=== PATIENT | female | born 1945 | race Two or more races ===

== ENCOUNTER 2021-11-11 03:37 | Emergency (ER) | payer OTHER, MEDICAID ==
[~2021-11-11] VITALS: Ht 162.6 cm; Wt 63.5 kg
[~2021-11-11 03:37] MED LIST: OMEP20TA85 PO; PREG75CA PO; SIMVPOW2 XX; TRAM50TA2 PO; TRAZ100T3 PO
[2021-11-11 03:40] VITALS: BP 142/87
[2021-11-11] MEDS ORDERED: LORazepam 2MG/ML-1ML VIAL IM ONE (05:30)
== END 2021-11-11 11:17 | disposition left against medical advice (07) ==
LOC: EDBD 03:37 → ER 03:40
DX: R41.82 Altered mental status, unspecified (principal); F41.9 Anxiety disorder, unspecified; F31.9 Bipolar disorder, unspecified; F20.9 Schizophrenia, unspecified
CPT/HCPCS: 96372; 99283; J2060

== ENCOUNTER 2025-01-17 19:40 | Emergency (ER) | payer OTHER, MEDICAID ==
[~2025-01-17] VITALS: Ht 154.9 cm; Wt 68.0 kg
[~2025-01-17 19:40] MED LIST changes: +TRAZ-228 PO; -TRAZ100T3 PO
[2025-01-17] MEDS: LORazepam 0.5 MG TAB PO ONE (20:00)
[2025-01-17 20:01] VITALS: BP 143/78; PULSE 100; RESP 25; TEMP 98.3; O2SAT 100
--- NOTE | 2025-01-17 20:10 | ED.PDOC ---
History of Present Illness HPI Comments 79 y/o F, with a history of anxiety, asthma, bipolar disorder, and liver cancer, is BIBA for c/o anxiety attack, today. Per EMS report, patient endorses on sudden onset of an anxiety attack episode, while shopping at [employer], earlier, this evening. She reports experiencing several stressors, lately, which included being unable to obtain a refill of her prescription medications, recent homelessness after being evicted by her biological daughter she was living with, and issues contacting other family members. Patient's vitals were reported to have been stable and within normal limits. She has no reported chest pain, shortness of breath, suicidal or homicidal ideations, auditory or visual hallucinations, or other associated symptoms at this time. Chief Complaint: Anxiety Time Seen by MD: 19:45 Primary Care Provider: LAWRENCE Rodriguez Notes: Nurses Notes, Barrel Roller Notes, Medications, Allergies Allergies: Coded Allergies: NO KNOWN ALLERGIES (Unverified , 12/06/12) Home Meds Reported Medications Omeprazole (HM OMEPRAZOLE) 20 Mg Tab, 20 MG PO DAILY 12/07/12 Simvastatin (Simvastatin) Pow, 1 XX 12/07/12 Pregabalin (Lyrica) 75 Mg Cap, 75 MG PO BID 12/07/12 Tramadol Hcl (Tramadol Hcl) 50 Mg Tab, 50 MG PO BID 12/07/12 Trazodone Hcl (Trazodone Hcl) 100 Mg Tab, 100 MG PO DAILY 12/07/12 Information Source: Patient, Emergency Med Personnel Mode of Arrival: EMS Severity: Moderate Timing: Hours Duration: Since onset Prehospital treatment: 12 Lead EKG, Director Of It Operations Past Medical History PAST MEDICAL HISTORY: Angina, High Lipids, HTN Past Medical History (Other): bipolar disorder, overweight Surgical History: Denies all surgeries SUB MASTER History: No Pertinent SUB MASTER History Family History Family History: Reviewed,noncontributory to illness Social History Smoker: Non-Smoker Alcohol: Denies ETOH Use Drugs: Denies Drug Use Lives In: Home All Other Systems: Reviewed and Negative (Comprehensive systems review obtained and negative except for what is stated in the HPI.) Physical Exam General Appearance: Other (anxious appearing, overweight ) HEENT: Normal ENT Inspection, Pharynx Normal, TMs Normal Neck: Full Range of Motion, Non-Tender, Normal, Normal Inspection Respiratory: Chest Non-Tender, Lungs Clear, No Accessory Muscle Use, No Respiratory Distress, Normal Breath Sounds Cardiovascular: No Edema, No JVD, No Murmur, No Gallop, Normal Peripheral Pulses, Regular Rate/Rhythm Breast Exam: Deferred Gastrointestinal: No Organomegaly, Non Tender, No Pulsatile Mass, Normal Bowel Sounds, Soft Genitalia: Deferred Pelvic: Deferred Rectal: Deferred Extremities: No calf tenderness, Normal capillary refill, Normal inspection, Normal range of motion, Non-tender, No pedal edema Musculoskeletal : Apperance: Normal Neurologic: Alert, engineering technician parking II-XII nml as Tested, No Motor Deficits, Normal Affect, Normal Mood, No Sensory Deficits Cerebellar Function: Normal Reflexes: Normal Skin: Dry, Normal Color, Warm Lymphatic: No Adenopathy Was a procedure done? Was a procedure done?: No Differential Dx Considerations may include: anxiety, panic attack, hopelessness, depression X-Ray, Labs, Meds, VS Vital Signs Date Time Temp Pulse Resp B/P (MAP) Pulse Ox O2 Delivery O2 Flow Rate FiO2 01/17/25 20:01 98.3 100 25 143/78 (99) 100 98.3 Lab Test 01/17/25 21:35 01/17/25 20:08 Range/Units Urine Color Colorless Yellow Urine Clarity Clear Clear Urine pH 6.5 5.0-9.0 Urine Specific [place] 1.002 1.001-1.035 Urine Protein Negative Negative Urine Ketones Negative Negative Urine Blood Negative Negative /uL Urine Nitrite Negative Negative Urine Bilirubin Negative Negative Urine Urobilinogen Normal Negative mg/dL Urine Leukocyte Esterase Negative Negative /uL Urine RBC <1 0 - 4 /hpf Urine Microscopic WBC < 1 0-5 /HPF Urine Squamous Epithelial Cells None seen <5 /hpf Urine Bacteria None seen None Seen /hpf Urine Glucose Normal Normal mg/dL Urine Opiates Screen Neg NEGATIVE Urine Fentanyl Screen Neg NEGATIVE Urine Barbiturates Screen Neg NEGATIVE Urine Phencyclidine Screen Neg NEGATIVE Urine Amphetamines Screen Neg NEGATIVE Urine Benzodiazepines Screen Neg NEGATIVE Urine Cocaine Screen Neg NEGATIVE Urine Cannabinoids Screen Neg NEGATIVE White Blood Count 7.7 4.4-10.8 10^3/uL Red Blood Count 4.73 4.0-5.20 10^6/uL Hemoglobin 13.4 12.2-16.2 g/dL Hematocrit 40.9 36.0-46.0 % Mean Corpuscular Volume 86.5 80.0-100.0 fL Mean Corpuscular Hemoglobin 28.3 28.0-32.0 pg Mean Corpuscular Hemoglobin Concent 32.7 32.0-36.0 g/dL Red Cell Distribution Width 15.4 H 11.8-14.3 % Platelet Count 247 140-450 10^3/uL Mean Platelet Volume 9.1 6.9-10.8 fL Neutrophils (%) (Auto) 63.4 37.0-80.0 % Lymphocytes (%) (Auto) 25.9 10.0-50.0 % Monocytes (%) (Auto) 6.9 0.0-12.0 % Eosinophils (%) (Auto) 2.9 0.0-7.0 % Basophils (%) (Auto) 0.9 0.0-2.0 % Neutrophils # (Auto) 4.9 1.6-8.6 10 ^3/uL Lymphocytes # (Auto) 2.0 0.4-5.4 10 ^3/uL Monocytes # (Auto) 0.5 0-1.3 10 ^3/uL Eosinophils # (Auto) 0.2 0-0.8 10 ^3/uL Basophils # (Auto) 0.1 0-0.2 10 ^3/uL Nucleated Red Blood Cells 0.0 % Sodium Level 139 136-145 mmol/L Potassium Level 3.9 3.5-5.1 mmol/L Chloride Level 103 98-107 mmol/L Carbon Dioxide Level 26 20-31 mmol/L Anion Gap 10 5-15 Blood Urea Nitrogen 13 9-23 mg/dL Creatinine 0.90 0.550-1.02 mg/dL Glomerular Filtration Rate Calc 65 >90 mL/min BUN/Creatinine Ratio 14.4 10.0-20.0 Serum Glucose 125 H 74-106 mg/dL Calcium Level 10.4 8.7-10.4 mg/dL Salicylates Level < 3.0 -30 mg/dL Acetaminophen Level < 2.0 L 10.0-20.0 UG/ML Plasma/Serum Blood Alcohol 5.5 <10 mg/dL Current Medications Medications (Trade) Dose Ordered Sig/Valentin Route Start Time Stop Time Status Last Admin Lorazepam (Ativan Tablet) 2 mg ONCE ONCE PO 01/17/25 20:00 01/17/25 20:01 DC 01/17/25 20:00 Time of 1ST Reevaluation: 20:15 Reevaluation 1ST: Unchanged Patient Education/Counseling: Diagnosis, Treatment Family Education/Counseling: No Family Present Additional Information Previous visit documents reviewed: November 11, 2021 and December 06, 2012 encounter for behavioral and chest pain, respectively The following tests were ordered, and results were reviewed by me: UA, salicylate, acetaminophen, blood alcohol, drug screen, BMP Additional Information was gathered from interviewing the following independent historians: EMS I reviewed and agreed with the following test results read by other providers: n/a I discussed treatment and results with medical personnel and: Patient Departure 1 Departure Time of Disposition: 22:34 (Patient is feeling better after receiving benzodiazepine medication. We will discharge patient home with outpatient follow up) Impression: Primary Impression: Panic attack Disposition: HOME / SELF CARE / HOMELESS Condition: Stable Additional Instructions: It is important continue to take your regular medications see your regular doctors. Discharged With: Self Critical Care Note Critical Care Time?: No Stability Stability form required: No Heart Score Heart Score: Heart Score Response (Comments) Value History N/A 0 EKG N/A 0 Age N/A 0 Risk Factors N/A 0 Troponin N/A 0 Total 0 I personally scribed for GEM BRYANT MD ([email or web address]) on 01/17/25 at 20:10. Electronically submitted by Rohith Street ([email or web address]). GEM BRYANT MD Jan 17, 2025 20:10
[2025-01-17 20:19] LABS: Basophils # (auto) 0.1 10 ^3/uL (0-0.2); Basophils % (auto) 0.9 % (0.0-2.0); Eosinophils # (auto) 0.2 10 ^3/uL (0-0.8); Eosinophils % (auto) 2.9 % (0.0-7.0); Hematocrit 40.9 % (36.0-46.0); Hemoglobin 13.4 g/dL (12.2-16.2); Lymphocytes % (auto) 25.9 % (10.0-50.0); Mean Corpuscular Hemoglobin 28.3 pg (28.0-32.0); Mean Corpuscular Hgb Conc. 32.7 g/dL (32.0-36.0); Mean Corpuscular Volume 86.5 fL (80.0-100.0); Monocytes # (auto) 0.5 10 ^3/uL (0-1.3); Monocytes % (auto) 6.9 % (0.0-12.0); Neutrophils # (auto) 4.9 10 ^3/uL (1.6-8.6); Neutrophils % (auto) 63.4 % (37.0-80.0); Platelet Count (auto) 247 10^3/uL (140-450); Red Blood Cells 4.73 10^6/uL (4.0-5.20); Red Cell Distribution Width 15.4 % (11.8-14.3); White Blood Cell 7.7 10^3/uL (4.4-10.8)
[2025-01-17 20:29] LABS: Chloride 103 mmol/L (98-107); Potassium 3.9 mmol/L (3.5-5.1); Sodium 139 mmol/L (136-145)
[2025-01-17 20:30] LABS: Anion Gap 10 (5-15); Calcium 10.4 mg/dL (8.7-10.4); Carbon Dioxide 26 mmol/L (20-31)
[2025-01-17 20:35] LABS: BUN/Creatinine Ratio 14.4 (10.0-20.0); Blood Urea Nitrogen 13 mg/dL (9-23)
[2025-01-17 20:36] LABS: Blood Alcohol 5.5 mg/dL (<10)
[2025-01-17 20:40] LABS: Acetaminophen < 2.0 UG/ML (10.0-20.0); Salicylate < 3.0 mg/dL (-30)
[2025-01-17 20:42] LABS: Glucose 125 mg/dL (74-106)
[2025-01-17 21:39] LABS: Urine Bacteria None Seen /hpf (None Seen)
[2025-01-17 22:02] LABS: Urine Blood Negative /uL (Negative); Urine Clarity Clear (Clear); Urine Color Colorless (Yellow); Urine Protein, UAD Negative (Negative); Urine Specific Gravity 1.002 (1.001-1.035); Urine Squamous Epithelial Cell None Seen /hpf (<5); Urine Urobilinogen Normal (Negative); Urine WBC < 1 /HPF (0-5); Urine pH 6.5 (5.0-9.0)
[2025-01-17 22:10] LABS: Amphetamine Screen, Urine Neg (NEGATIVE); Barbiturate Scree,Urine Neg (NEGATIVE); Benzodiazephine Screen, Urine Neg (NEGATIVE); Cannabinoid Screen, Urine Neg (NEGATIVE); Cocaine Screen, Urine Neg (NEGATIVE); Opiate Scree,Urine Neg (NEGATIVE); Phencyclidine Screen, Urine Neg (NEGATIVE)
== END 2025-01-17 22:35 | disposition home or self-care (01) ==
LOC: ER 19:40 → EDBD 19:40 → ER 22:35
DX: F41.0 Panic disorder [episodic paroxysmal anxiety] (principal); I10 Essential (primary) hypertension; F31.9 Bipolar disorder, unspecified; J45.909 Unspecified asthma, uncomplicated; Z79.899 Other long term (current) drug therapy; Z85.05 Personal history of malignant neoplasm of liver
CPT/HCPCS: 36415; 80048; 80307; 80320; 80329; 81001; 85025